=== PATIENT | female | born 1990 | race Caucasian/White ===

== ENCOUNTER 2025-01-08 06:46 | Day surgery (SDC) | payer OTHER ==
[~2025-01-08] VITALS: Ht 167.6 cm; Wt 72.9 kg
[~2025-01-08 06:46] MED LIST: COLA100C5 PO; DICY-61 PO; IRON65TA2 PO; LISD40CA PO; OMEP40CA5 PO; PRENTAB53 PO; VALA-3 PO; [UNRECOGNIZED DRUG - OTHER]
[2025-01-08] MEDS ORDERED: LIDOCAINE 2% 100 MG/5 ML SDV (FOR ANES.) As Ordered ONE (07:06)
[2025-01-08 08:11] VITALS: TEMP 97.6
[2025-01-08 08:35] VITALS: BP 108/50; O2SAT 100
== END 2025-01-08 08:41 | disposition home or self-care (01) ==
LOC: M OPP 06:46
PROVIDERS: ATTEND Internal Medicine Gastroenterology
DX: K51.90 Ulcerative colitis, unspecified, without complications (principal); K64.0 First degree hemorrhoids; D50.9 Iron deficiency anemia, unspecified; Z88.8 Allergy status to other drugs, medicaments and biological substances; Z91.02 Food additives allergy status; Z79.899 Other long term (current) drug therapy; J45.909 Unspecified asthma, uncomplicated
CPT/HCPCS: 43249; 45380; 88305; J3010